=== PATIENT | female | born 1980 | race African-American/Black ===

== ENCOUNTER 2019-11-10 19:55 | Emergency (ER) | payer SELFPAY ==
[~2019-11-10] VITALS: Ht 162.6 cm; Wt 93.0 kg
[2019-11-10 20:38] LABS: BASOPHILS % 0.5 % (0.0-1.0); EOSINOPHILS # (AUTO) 0.1 (0.0-0.4); EOSINOPHILS % 0.9 % (0.0-6.0); HEMATOCRIT 35.5 % (34.2-44.1); HEMOGLOBIN 11.1 g/dL (12.0-16.0); LYMPHOCYTES # (AUTO) 2.8 (1.0-3.2); LYMPHOCYTES % 50.8 % (18.0-39.1); MEAN CORPUSCULAR HEMOGLOBIN 27.1 pg (28-32); MEAN CORPUSCULAR HGB CONC 31.3 g/dL (31-35); MEAN CORPUSCULAR VOLUME 86.6 fL (81-99); MONOCYTES # (AUTO) 0.5 (0.2-0.8); MONOCYTES % 8.3 % (4.4-11.3); NEUTROPHILS # (AUTO) 2.2 (2.1-6.9); NEUTROPHILS % 39.3 % (38.7-80.0); PLATELET COUNT 370 x10e3/uL (140-360); RED CELL DISTRIBUTION WIDTH 15.6 % (11.7-14.4)
[2019-11-10 20:49] LABS: AMPHETAMINES SCREEN,URINE NEGATIVE (NEGATIVE); BENZODIAZEPINES SCREEN,URINE NEGATIVE (NEGATIVE); BILIRUBIN,URINE NEGATIVE (NEGATIVE); CLARITY,URINE SL CLOUDY (CLEAR); COLOR,URINE STRAW (YELLOW); KETONES,URINE 2+ (NEGATIVE); LEUKOCYTE ESTERASE ,URINE NEGATIVE (NEGATIVE); NITRITE,URINE NEGATIVE (NEGATIVE); PHENCYCLIDINE SCREEN,URINE NEGATIVE (NEGATIVE); PREGNANCY TEST, URINE NEGATIVE (NEGATIVE); PROTEIN,URINE DIPSTICK 1+ (NEGATIVE); URINE UROBILINOGEN 0.2 mg/dL (0.2 - 1)
--- NOTE | 2019-11-10 20:55 | Emergency Department Note ---
History of Present Illnes History of Present Illness Chief Complaint: Neurological History of Present Illness This is a 39 year old female C/O DIZZINESS AND SOB STARTED TODAY DENIES CP PER SISTER PT KEEPS BLACKING OUT BUT PT STATES SHE DOESN'T THINK SHE DID STATES SHE DID NOT HIT HER HEAD . Historian: Patient Arrival Mode: Car Onset (how long ago): hour(s) (2) Location: NONE Quality: REPORTED SYYNCOPE, PT BELIEVES IT IS JUST HER ANXIETY Radiation: Reports non-radiation Severity: mild Onset quality: sudden Duration (how long): hour(s) (2) Timing of current episode: intermittent Progression: unchanged Chronicity: new Relieving factors: none Exacerbating factors: none Associated symptoms: Reports shortness of breath Treatments prior to arrival: none Past Medical/Family History Physician Review I have reviewed the patient's past medical and family history. Any updates have been documented here. Past Medical History Recent Fever: No Clinical Suspicion of Infectio: No New/Unexplained Change in Ment: No Past Medical History: Anxiety Past Surgical History: None Social History Smoking Cessation: Never Smoker Alcohol Use: None Physically hurt or threatened: No Family History Family history of heart diseas: No Review of Systems Review of Systems Constitutional: Reports no symptoms EENTM: Reports no symptoms Cardiovascular: Reports no symptoms Respiratory: Reports as per HPI Gastrointestinal: Reports no symptoms Genitourinary: Reports no symptoms Musculoskeletal: Reports no symptoms Integumentary: Reports no symptoms Neurological: Reports as per HPI Psychological: Reports no symptoms Endocrine: Reports no symptoms Hematological/Lymphatic: Reports no symptoms Physical Exam Related Data Allergies: Coded Allergies: No Known Allergies (Unverified , 11/10/19) Triage Vital Signs Vital Signs Date Time Temp Pulse Resp B/P (MAP) Pulse Ox O2 Delivery O2 Flow Rate FiO2 11/10/19 20:00 97.9 90 18 159/93 100 Room Air Vital signs reviewed: Yes Physical Exam CONSTITUTIONAL Constitutional: Present well-developed, Present well-nourished, Present other (SLIGHTLY ANXIOUS) HENT HENT: Present normocephalic, Present atraumatic, Present oropharynx clear/moist, Present nose normal HENT L/R: Present left ext ear normal, Present right ext ear normal EYES Eyes: Reports PERRL, Reports conjunctivae normal NECK Neck: Present ROM normal PULMONARY Pulmonary: Present effort normal, Present breath sounds normal CARDIOVASCULAR Cardiovascular: Present regular rhythm, Present heart sounds normal, Present capillary refill normal, Present normal rate GASTROINTESTINAL Abdominal: Present soft, Present nontender, Present bowel sounds normal GENITOURINARY Genitourinary: Present exam deferred SKIN Skin: Present warm, Present dry MUSCULOSKELETAL Musculoskeletal: Present ROM normal NEUROLOGICAL Neurological: Present alert, Present oriented x 3, Present no gross motor or sensory deficits PSYCHOLOGICAL Psychological: Present mood/affect normal, Present judgement normal Results Laboratory Result Diagram: 11/10/192006 Laboratory Laboratory Tests Test 11/10/19 20:07 White Blood Count 5.53 x10e3/uL (4.8-10.8) Red Blood Count 4.10 x10e6/uL (3.6-5.1) Hemoglobin 11.1 g/dL (12.0-16.0) Hematocrit 35.5 % (34.2-44.1) Mean Corpuscular Volume 86.6 fL (81-99) Mean Corpuscular Hemoglobin 27.1 pg (28-32) Mean Corpuscular Hemoglobin Concent 31.3 g/dL (31-35) Red Cell Distribution Width 15.6 % (11.7-14.4) Platelet Count 370 x10e3/uL (140-360) Neutrophils (%) (Auto) 39.3 % (38.7-80.0) Lymphocytes (%) (Auto) 50.8 % (18.0-39.1) Monocytes (%) (Auto) 8.3 % (4.4-11.3) Eosinophils (%) (Auto) 0.9 % (0.0-6.0) Basophils (%) (Auto) 0.5 % (0.0-1.0) Neutrophils # (Auto) 2.2 (2.1-6.9) Lymphocytes # (Auto) 2.8 (1.0-3.2) Monocytes # (Auto) 0.5 (0.2-0.8) Eosinophils # (Auto) 0.1 (0.0-0.4) Basophils # (Auto) 0.0 (0.0-0.1) Absolute Immature Granulocyte (auto 0.01 x10e3/uL (0-0.1) Procedures 12 Lead ECG Interpretation ECG Interpretation : ECG: ECG 1 Forder Operator: Interpreted by ED physician Date: Nov 10, 2019 Time: 20:05 Rhythm: sinus rhythm Rate: normal BPM: 69 QRS axis: normal ST segments normal: Yes T waves normal: Yes Other findings: LVH Clinical Impression: non-specific ECG Assessment & Plan Medical Decision Making MDM PT WITH SOB AND REPORTED SYNCOPE BY FAMILY CBC, CMP, CARDIAC ENZYMES, EKG, CXR, UA, CT BRAIN. 2051 PT WANTS TO LEAVE, STATES SHE IS WORRIED SHE WILL GET SICK HERE AT THE HOSPITAL, PT WANTS TO SIGN OUT AMA, I WENT OVER CONCERNS OF CARDIAC ISSUES, INTRACRANIAL ISSUES, PT SIGHING OUT AMA BUT BEING DISCHARGED WITH INSTRUCTIONS ON SYNCOPE, PT ALSO ADVISED TO RETURN IF SHE HAS ANY CONCERNS OR NEW SYMPTOMS, I TOLD PT SHE IS WELCOME TO RETURN ANY TIME FOR ANY CONCERNS Assessment & Plan Final Impression: (1) Syncope Depart Disposition: AGAINST MEDICAL ADVICE Last Vital Signs Date Time Temp Pulse Resp B/P (MAP) Pulse Ox O2 Delivery O2 Flow Rate FiO2 11/10/19 20:00 97.9 90 18 159/93 100 Room Air CHIDI SPENCER MD Nov 10, 2019 20:54
[2019-11-10 20:56] LABS: ALANINE AMINOTRANSFERASE 19 IU/L (0-55); ALBUMIN 4.1 g/dL (3.5-5.0); ALKALINE PHOSPHATASE 79 IU/L (40-150); ANION GAP 15.3 mmol/L (8-16); BLOOD UREA NITROGEN 10 mg/dL (7-26); BUN/CREATININE RATIO 12 (6-25); CALCIUM 8.9 mg/dL (8.4-10.2); CARBON DIOXIDE 22 mmol/L (22-29); CHLORIDE 106 mmol/L (98-107); CREATINE KINASE 241 IU/L (29-168); CREATININE, SERUM 0.85 mg/dL (0.57-1.11); EST GLOMERULAR FILTRATION RATE > 60 ML/MIN (60-); GLUCOSE 87 mg/dL (74-118); POTASSIUM 3.3 mmol/L (3.5-5.1); SODIUM 140 mmol/L (136-145)
[2019-11-10 21:04] LABS: BACTERIA,URINE MANY /HPF
[2019-11-10 21:05] LABS: EPITHELIAL CELLS,URINE MODERATE /LPF
== END 2019-11-10 20:57 | disposition home or self-care (01) ==
LOC: ER 20:15
DX: R55 Syncope and collapse (principal); R06.02 Shortness of breath; R42 Dizziness and giddiness
CPT/HCPCS: 36415; 80053; 80307; 81001; 81025; 82550; 82553; 84484; 85025; 93005; 99283